=== PATIENT | male | born 1990 | race Caucasian/White ===

== ENCOUNTER 2021-03-05 18:26 | Emergency (ER) | payer MEDICAID, OTHER ==
[~2021-03-05] VITALS: Ht 180.3 cm; Wt 65.3 kg
[2021-03-05 18:31] VITALS: BP 150/98
[2021-03-05] MEDS ORDERED: DIPH,PERTUSS(ACELL),TET VAC/PF 0.5 ML IM-VACC ONE ×2 (19:00→19:01)
[2021-03-05] MEDS ORDERED: LIDOCAINE-MPF 1%, 5ML INFIL ONE (19:00)
[2021-03-05] MEDS ORDERED: LIDOCAINE-MPF 1%, 5ML ONE (19:01)
--- NOTE | 2021-03-05 19:24 | NUR ---
PT WOUND IRRIGATED AND SUTURED BY EDA WEAVER IN TRIAGE. PT PROVIDED TDAP VACCINE AND TO BE DISCHARGED FROM TRIAGE. WOUND EDUCACTION ALSO PROVIDED. PT VERBALIZED UNDERSTANDING.
== END 2021-03-05 19:30 | disposition home or self-care (01) ==
LOC: ED 19:00
DX: S61.411A Laceration without foreign body of right hand, initial encounter (principal); X58.XXXA Exposure to other specified factors, initial encounter; Y93.89 Activity, other specified; Y92.009 Unspecified place in unspecified non-institutional (private) residence as the place of occurrence of the external cause; Y99.8 Other external cause status
CPT/HCPCS: 12041; 90471; 90715